=== PATIENT | male | born 1965 | race Hispanic/Latino ===

== ENCOUNTER 2017-04-21 08:44 | Emergency (ER) | payer OTHER ==
[~2017-04-21] VITALS: Ht 172.7 cm; Wt 87.1 kg
--- NOTE | 2017-04-21 09:00 | ED UPPER/LOWER EXTREMITY COMPL ---
History of Present Illness General Chief Complaint: Lower Extremity Problems Stated Complaint: RT FOOT SWELLING NO INJRUY Source: patient Exam Limitations: no limitations Vital Signs & Intake/Output Vital Signs & Intake/Output Vital Signs Date Time Temp Pulse Resp B/P B/P Pulse O2 O2 Flow FiO2 Mean Ox Delivery Rate 04/21 0901 97.0 71 18 106/75 100 Room Air Allergies Coded Allergies: No Known Allergies (04/21/17) Triage Nurses Notes Reviewed? 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 Patient states that ambulation makes worse. Patient had fevers for the past 24 hours waxing and waning. No medications given for symptoms. Denies any chest pain shortness of breath cough hemoptysis. Denies any trauma or mechanism of injury (NICOLE BOTELLO) Reconcile Medications No Known Home Medications (SHAWN MARTINEZ,PATRICK Portillo) Past History Medical History Any Pertinent Medical History? none Surgical History Surgical History: non-contributory Family History Hx Contributory? No (NICOLE BOTELLO) Review of Systems Review of Systems Constitutional: Reports: see HPI, fever. EENTM: Reports: no symptoms. Respiratory: Reports: no symptoms. Cardiovascular: Reports: no symptoms. Gastrointestinal/Abdominal: Reports: no symptoms. Genitourinary: Reports: no symptoms. Musculoskeletal: Reports: see HPI. Skin: Reports: see HPI, erythema. Neurological/Psychological: Reports: no symptoms. Hematologic/Endocrine: Reports: no symptoms. Immunological: Reports: no symptoms. All Other Systems: Reviewed and Negative (NICOLE BOTELLO) Physical Exam Physical Exam General Appearance: no apparent distress, alert, comfortable Head: atraumatic Eyes: Bilateral: normal appearance. Ears, Nose, Throat: hearing grossly normal Neck: normal inspection Peripheral Pulses: 2+ dorsalis pedis (R), 2+ dorsalis pedis (L) Hip Right: normal range of motion, normal inspection Knee Right: normal range of motion, normal inspection Neurologic/Tendon: normal sensation, normal motor functions, normal tendon functions, responds to pain, no evidence tendon injury, no pulse deficit Skin: intact Diagram Legs Front/Back 1) Noted erythema warm and tenderness, full active range of motion noted with dorsiflexion plantar flexion dermatomes intact no fluctuance no induration 2) Mild tenderness and warmth noted (NICOLE BOTELLO) Progress Differential Diagnosis: arterial insufficiency, contusion, dislocation, DVT, fracture, gout, septic arthritis, sprain, tendon injury, cellulitis, lyme Plan of Care: Orders Procedure Date/time Status Durable Medical Equipment 04/21 0940 Active LYME TITRE 04/21 0934 Active Laboratory Tests 04/21/17 0944: Lyme Disease Antibody Pending Due to history of present illness and exam findings patient has suspicion of cellulitis. No suspicion at this time a septic arthritis. No concerns of abscess. Bartolome wrap was placed to right ankle pre-and post-neurovascular was intact. Patient was strongly advised to establish [facility] and to return to emergency room if symptoms worsen and he will comply. (NICOLE BOTELLO) Departure Departure Disposition: HOME OR SELF CARE Condition: Stable Clinical Impression Primary Impression: Cellulitis of right ankle Additional Instructions: As discussed begin the prescription of Keflex as directed for the full course. Begin the prescription meloxicam for pain and inflammation. Begin to elevate THE foot for swelling begin using the Bartolome wrap for swelling. Begin using the crutches and taking a walk without pain. If symptoms worsen or IF YOU develop a new concerning symptom return to the emergency room immediately. On Sunday please follow up and establish [facility] to establish a doctor and for further evaluation treatment. Prescriptions waiting at [facility]. Departure Forms: Customer Survey General Discharge Information (NICOLE BOTELLO) Departure Prescriptions: Current Visit Scripts No Known Home Medications PA/INSTRUMENT MECHANIC Co-Sign Statement Statement: ED Attending supervision documentation- [] I saw and evaluated the patient. I have also reviewed all the pertinent lab results and diagnostic results. I agree with the findings and the plan of care as documented in the PA's/INSTRUMENT MECHANIC's documentation. [X] I have reviewed the ED Record and agree with the PA's/INSTRUMENT MECHANIC's documentation. [] Additions or exceptions (if any) to the PAs/INSTRUMENT MECHANIC's note and plan are summarized below: [] (SHAWN MARTINEZ,PATRICK Portillo)
[2017-04-21 09:01] VITALS: BP 106/75
== END 2017-04-21 10:11 ==
LOC: ERH 08:44
DX: L03.115 Cellulitis of right lower limb (principal)
CPT/HCPCS: 86618